=== PATIENT | male | born 1950 | race Two or more races ===

== ENCOUNTER 2023-06-27 14:20 | Emergency (ER) | payer MEDICAID ==
[~2023-06-27] VITALS: Ht 154.9 cm; Wt 90.6 kg
[2023-06-27 14:52] LABS: Basophils # (auto) 0 10 ^3/uL (0-0.2); Basophils % (auto) 0.3 % (0.0-2.0); Eosinophils # (auto) 0 10 ^3/uL (0-0.8); Eosinophils % (auto) 0.1 % (0.0-7.0); Hemoglobin 16.9 g/dL (13.5-17.5); Lymphocytes # (auto) 1.8 10 ^3/uL (0.4-5.4); Mean Corpuscular Hemoglobin 30.7 pg (28.0-32.0); Mean Corpuscular Hgb Conc. 33.2 g/dL (32.0-36.0); Mean Corpuscular Volume 92.5 fL (80.0-100.0); Monocytes # (auto) 0.7 10 ^3/uL (0-1.3); Monocytes % (auto) 4.9 % (0.0-12.0); Neutrophils # (auto) 11.1 10 ^3/uL (1.6-8.6); Neutrophils % (auto) 81.7 % (37.0-80.0); Nucleated Red Blood Cells % 0.1 %; Red Blood Cells 5.51 10^6/uL (4.5-5.90); Red Cell Distribution Width 13.3 % (11.8-14.3); White Blood Cell 13.5 10^3/uL (4.4-10.8)
[2023-06-27] MEDS: amLODIPine BESYLATE 5 MG TAB PO ONE (15:03)
[2023-06-27 15:08] LABS: Alanine Aminotransferase 15 U/L (7-40); Albumin 4.5 g/dL (3.2-4.8); Alkaline Phosphatase 85 U/L (46-116); Anion Gap 10 (5-15); Aspartate Aminotransferase 21 U/L (13-40); BUN/Creatinine Ratio 10.1 (10.0-20.0); Blood Urea Nitrogen 10 mg/dL (9-23); Carbon Dioxide 24 mmol/L (20-30); Chloride 106 mmol/L (98-107); Glucose 116 mg/dL (74-106); Lipase 35 U/L (12-53); Potassium 3.2 mmol/L (3.5-5.1); Sodium 140 mmol/L (136-145); Total Protein 8.1 g/dL (5.7-8.2)
[2023-06-27] MEDS: SODIUM CHLORIDE 0.9% 1,000 ML IV ONE ×2 (15:15)
[2023-06-27] MEDS: IOHEXOL 300 MG/ML 100ML BOTTLE IJ ONE (16:15)
[2023-06-27] MEDS: cefTRIAXone 1GM/50ML D5W 50 ML IV ONE (16:27)
[2023-06-27 18:22] VITALS: O2SAT 96
[2023-06-27 18:28] VITALS: BP 179/97; PULSE 91; RESP 20
[2023-06-27] MEDS: MORPHINE SULFATE 4 MG/ML SYR/VIAL IV ONE (18:28)
[2023-06-27] MEDS: ONDANSETRON HCL 4 MG/2 ML VIAL IV ONE (18:29)
[2023-06-27] MEDS: hydrALAZINE HCL 10 MG TAB PO ONE (18:49)
[2023-06-27] MEDS: cloNIDine HCL 0.1 MG TAB PO ONE (18:50)
== END 2023-06-27 17:17 | disposition short-term general hospital (02) ==
LOC: ER 14:20
DX: D73.5 Infarction of spleen (principal); R10.9 Unspecified abdominal pain; I10 Essential (primary) hypertension
CPT/HCPCS: 36415; 71045; 74177; 80053; 80320; 83690; 83880; 84484; 85025; 87040; 93005; 96361; 96365; 96375; 99291; J0696; J2270; J2405; J7030; Q9967